=== PATIENT | female | born 1960 | race Caucasian/White ===

== ENCOUNTER → 2017-12-23 15:28 | Outpatient (CLI) | payer BC, SELFPAY ==
--- NOTE | 2017-12-23 15:33 | RAD_ITS ---
STUDY: X-RAY - ABDOMEN/PELVIS REASON FOR EXAM: Female, 57 years old. Kidney stone for one and a half months. TECHNIQUE: AP COMPARISON: None. FINDINGS: There is an unremarkable bowel gas pattern. There is no demonstrated free abdominal air. The visualized liver, spleen and kidneys are grossly normal in size and morphology. There are calcified phleboliths in the pelvis. Normal visualized osseous structures. RAD/Abdomen Single View IMPRESSION: Nonspecific bowel gas pattern. No renal calculi identified. Electronically Signed: Olinda Junior MD at 16:01 EDT Tel , Service support ,
== END ==
PROVIDERS: Family Provider Family Medicine; PCP Family Medicine; Visit Provider Nurse Practitioner Adult Health
DX: N20.1 Calculus of ureter (principal)
CPT/HCPCS: 74018

== ENCOUNTER → 2019-12-17 13:18 | Outpatient (CLI) | payer BC, SELFPAY ==
--- NOTE | 2019-12-17 13:25 | RAD_ITS ---
STUDY: X-RAY - ABDOMEN/PELVIS REASON FOR EXAM: Female, 59 years old. Pt. had kidney stone on left, not currently having any pain TECHNIQUE: Single AP view of the abdomen / pelvis. COMPARISON: Previous study of 12/23/2017 FINDINGS: Normal visualized lung bases. There is an unremarkable bowel gas pattern. There is no demonstrated free abdominal air. The visualized liver, spleen and kidneys are grossly normal in size and morphology. There are bilateral pelvic phleboliths, similar to the previous study. Normal soft tissue structures. There is a mild lumbar levoscoliosis. RAD/Abdomen Single View IMPRESSION: Mild lumbar levoscoliosis. No renal calculi are identified. Findings are similar to the previous study. Electronically Signed: Mark Anthony Barone MD at 20:44 EDT , Service support ,
== END ==
PROVIDERS: PCP Family Medicine; Referring Provider Nurse Practitioner Adult Health; Visit Provider Nurse Practitioner Adult Health
DX: N20.0 Calculus of kidney (principal)
CPT/HCPCS: 74018